=== PATIENT | male | born 1990 | race African-American/Black ===

== ENCOUNTER 2019-07-10 12:32 | Emergency (ER) | payer SELFPAY ==
[2019-07-10] MEDS ORDERED: Ondansetron PF 4 MG/2 ML Vial ONE (13:00)
[2019-07-10] MEDS ORDERED: Ketorolac Tromethamine 30 MG/ML VIAL ONE (13:00)
[2019-07-10] MEDS ORDERED: Sodium Chloride 0.9% 1,000 ML ONE (13:00)
[2019-07-10 13:15] LABS: #Basophils 0.1 thou/uL (0.0-0.2); #Lymphocytes 1.5 thou/uL (1.20-3.40); #Neutrophils 5.2 thou/uL (1.40-6.50); %Basophils 1.2 % (0.0-1.0); %Eosinophils 0.2 % (0.0-10.0); %Lymphocytes 18.7 % (21.0-51.0); %Neutrophils 66.9 % (42.0-75.0); Hemoglobin 13.9 g/dL (14.0-18.0); Mean Corpuscular HGB CONC 31.5 g/dL (32.0-36.0); Mean Corpuscular Volume 85.9 fL (78.0-98.0); Mean Platelet Volume 8.7 fL (7.4-10.4); Platelet Count 187 thou/uL (130-400); RBC Distribution Width 12.3 % (11.5-14.5); Red Blood Cell (RBC) Count 5.16 mill/uL (4.70-6.10); White Blood Cell (WBC) Count 7.8 thou/uL (4.8-10.8)
[2019-07-10 13:19] LABS: Bilirubin Negative (Negative); Blood, Urine Negative (Negative); Clarity Clear (Clear); Glucose, Urine (Dipstick) Negative (Negative); Leukocyte Negative (Negative); Nitrite Negative (Negative); Protein, Urine (Dipstick) 30 mg/dL (Neg-Trace); Urobilinogen 0.2 mg/dL (Less than 2)
[2019-07-10 13:26] LABS: RBC/HPF 0-3 HPF (0-3)
[2019-07-10 13:27] LABS: Albumin 4.4 g/dL (3.5-5.0); Bacteria/HPF None Seen HPF (None Seen); Calcium 9.6 mg/dL (7.8-10.44); Chloride 101 mmol/L (98-107); Globulin 2.9 g/dL (2.4-3.5); Glucose 108 mg/dL (70-105); Mucous/LPF 2+ LPF (<2+); Potassium 4.1 mmol/L (3.5-5.1); Protein, Total 7.3 g/dL (6.0-8.3); Sodium 136 mmol/L (136-145); Squamous Epithelial 0-3 HPF (0-3); WBC/HPF 0-3 HPF (0-3)
--- NOTE | 2019-07-10 14:28 | CT ---
CT head without contrast: Multiple axial tomograms obtained through the head without IV enhancement. INDICATIONS: Headache COMPARISON: None FINDINGS: Ventricles have normal size and position. No evidence of intracranial mass, hemorrhage, edema, or infarct. Mucous retention cyst in the left sphenoid air cell. Mild mucosal opacification of several ethmoid ai r cells. Retention cyst in the right maxillary antrum. Bony calvarium appears unremarkable. IMPRESSION: No acute intracranial abnormality. Sinus mucosal disease as described
[2019-07-10 14:42] LABS: ALT (SGPT) 32 U/L (8-55); AST (SGOT) 22 U/L (5-34); Alkaline Phosphatase 76 U/L (40-110); BUN (Urea Nitrogen) 12 mg/dL (8.9-20.6); Bilirubin, Total 0.7 mg/dL (0.2-1.2); Calc. Creatinine Clearance 0 mL/min (70-130); Carbon Dioxide 24 mmol/L (22-29); Estimated GFR-MDRD Greater than 90
[2019-07-10 14:45] LABS: Anion Gap 15 mmol/L (10-20)
== END 2019-07-10 14:45 | disposition home or self-care (01) ==
LOC: NAV ERS 12:32
DX: J01.90 Acute sinusitis, unspecified (principal); F17.200 Nicotine dependence, unspecified, uncomplicated
CPT/HCPCS: 70450; 80053; 81003; 81015; 85025; 96361; 96374; 96375; J1885; J2405; J7050

== ENCOUNTER 2019-11-14 10:19 | Emergency (ER) | payer OTHER, SELFPAY | END 2019-11-14 10:35 | disposition home or self-care (01) | LOC: NAV ERS 10:19 | DX: J02.9 Acute pharyngitis, unspecified (principal); F17.200 Nicotine dependence, unspecified, uncomplicated | CPT/HCPCS: 99281 ==

== ENCOUNTER 2020-01-18 15:13 | Emergency (ER) | payer OTHER, SELFPAY | END 2020-01-18 16:08 | disposition home or self-care (01) | LOC: NAV ERS 15:13 | DX: R51 Headache (principal); F17.210 Nicotine dependence, cigarettes, uncomplicated | CPT/HCPCS: 99283 ==

== ENCOUNTER 2020-01-19 06:28 | Emergency (ER) | payer OTHER, SELFPAY ==
[2020-01-19] MEDS ORDERED: Ondansetron ODT 4 MG TAB ONE (06:43)
[2020-01-19] MEDS ORDERED: diphenhydrAMINE 50 MG/ML VIAL ONE (07:29)
[2020-01-19] MEDS ORDERED: Metoclopramide HCl 10 MG/2 ML VIAL ONE (07:29)
[2020-01-19] MEDS ORDERED: Sodium Chloride 0.9% 2,000 ML ONE (08:08)
[2020-01-19] MEDS ORDERED: Ketorolac Tromethamine 30 MG/ML VIAL ONE (08:08)
== END 2020-01-19 09:33 | disposition home or self-care (01) ==
LOC: NAV ERS 06:28
DX: R51 Headache (principal); R11.2 Nausea with vomiting, unspecified; F17.210 Nicotine dependence, cigarettes, uncomplicated
CPT/HCPCS: 96361; 96374; 96375; J1200; J1885; J2765; J7050; Q0162